=== PATIENT | male | born 1985 ===

== ENCOUNTER 2016-09-04 16:23 | Day surgery (SDC) | payer OTHER ==
[2016-09-04] MEDS ORDERED: MIDAZOLAM HCL 2 MG/2 ML SYR IV PRN ×2 (16:40→18:17)
[2016-09-04] MEDS ORDERED: ceFAZolin 1 GM in NORMAL SALINE MINI-BAG+ 100 ML IV PRN ×2 (16:40→18:17)
[2016-09-04] MEDS ORDERED: LIDOCAINE HCL 1% 20 ML VIAL SUBCUT PRN ×2 (16:40→18:17)
[2016-09-04] MEDS ORDERED: FAMOTIDINE IN SALINE, ISO-OSM 20 MG/50 ML PIGGYBACK IV SCH ×2 (16:45→18:17)
[2016-09-04] MEDS ORDERED: ACETAMINOPHEN 1,000 MG/100 ML VIAL IV SCH ×2 (16:45→18:17)
[2016-09-04] MEDS ORDERED: NORFLURANE/HFC 245FA 1 APPLIC CAN TOPICAL ONE (16:48)
[2016-09-04] MEDS ORDERED: FENTANYL 100 MCG/2 ML VIAL ONE ×2 (16:52→16:53)
[2016-09-04] MEDS ORDERED: ROCURONIUM BROMIDE 50 MG/5 ML VIAL IV ONE (16:52)
[2016-09-04] MEDS ORDERED: SUCCINYLCHOLINE CHLORIDE 200 MG/10 ML VIAL ONE (16:52)
[2016-09-04] MEDS ORDERED: ONDANSETRON HCL 4 MG/2 ML VIAL ONE (16:54)
[2016-09-04] MEDS ORDERED: DEXAMETHASONE 4 MG/ML VIAL ONE (16:54)
[2016-09-04] MEDS ORDERED: ceFAZolin 1 GM/10 ML VIAL ONE (16:57)
[2016-09-04] MEDS ORDERED: MIDAZOLAM HCL 2 MG/2 ML VIAL ONE (16:58)
[2016-09-04] MEDS ORDERED: LACTATED RINGERS 1,000 ML IV SCH ×3 (17:00→18:17)
[2016-09-04] MEDS ORDERED: BUPIVACAINE HCL/PF 0.5% 30 ML VIAL ONE (17:12)
[2016-09-04] MEDS ORDERED: BACITRACIN 50,000 UNITS VIAL IM ONE ×2 (17:15→18:05)
[2016-09-04] MEDS ORDERED: NORMAL SALINE FLUSH 10 ML ONE (18:05)
[2016-09-04] MEDS ORDERED: BACITRACIN 14 APP/14 GM TUBE TOPICAL ONE (18:05)
[2016-09-04] MEDS ORDERED: MORPHINE SULFATE 10 MG/ML SYR IV PRN (18:17)
[2016-09-04] MEDS ORDERED: ONDANSETRON HCL 4 MG/2 ML VIAL IV PRN (18:17)
[2016-09-04] MEDS ORDERED: FENTANYL 100 MCG/2 ML VIAL IV PRN (18:17)
[2016-09-04 19:35] VITALS: TEMP 97
[2016-09-04 20:02] VITALS: RESP 16
[2016-09-04] MEDS ORDERED: ALBUTEROL 0.083% 2.5 MG/3 ML VIAL.NEB INHALATION ONE (20:07)
[2016-09-04 20:53] VITALS: BP 134/83; PULSE 96; O2SAT 94
--- NOTE | 2016-09-05 07:54 | OPERATIVE REPORT ---
Preoperative diagnosis: Right great toe displaced proximal phalanx open fracture Postoperative diagnosis: Same Procedure: Right great toe proximal phalanx open reduction internal fixation with irrigation and debridement Surgeon: Dr. Jon Berman Anesthesia: General Estimated blood loss: Minimal Total tourniquet time: 90 minutes Procedure note: The patient was brought to the OR suite and after administration of general anesthesia the right lower extremity was prepped and draped in a sterile fashion after applying a well-padded tourniquet to the right proximal thigh. An Esmarch bandage was utilized to exsanguinate followed by insufflation of the tourniquet. The laceration over the dorsum of the great toe was irrigated and debrided of devascularized tissue. The extensor tendon was noted which appeared to be intact. The open fracture was irrigated with bacitracin infused normal saline 1 L. An incision was made over the dorsal and medial aspect of the great toe. Dissection was carried down bluntly avoiding all neurovascular structures. The medial joint capsule was incised and the fracture fragment was stripped of periosteum immediately around the fracture site for visualization and reduction purposes. The fracture was reduced but it was noted on the oblique that it was still in an extended position therefore a dental pick was utilized for reduction coupled with a freer elevator utilizing a Kapunji technique. Fluoroscopic intensification was utilized for fracture reduction and placement of K wires. 2 K wires which were crossing were inserted near perpendicular across the fracture site. Noting some diastases on the fluoroscopic intensification a sharp bone reduction clamp was utilized to compress the fracture followed by removal of the K wires which did produce good compression at the fracture site as noted on the fluoroscopic image. Two 2.7 fully threaded screws were then inserted after first drilling perpendicular to the fracture site in a divergent trajectory both slightly dorsal and plantar each. The fracture site and laceration were then again copiously irrigated with bacitracin infused normal saline. The capsule to the joint was repaired with 4.0 FiberWire. The incision and laceration were closed utilizing 2-0 nylon. The patient did have an injection of half percent plain bupivacaine at the beginning and the end of the surgery. Some of the bupivacaine did come out through the open laceration, but a total of 20 mL total was injected. A plaster splint was applied after first applying bacitracin ointment, Xeroform, 4 x 4s, 4 x 4 fluffs and cast padding. The patient was transferred from the OR suite to the recovery room. SOPHIA
--- NOTE | 2016-09-07 06:37 | RADIOLOGY REPORT ---
Five views of the right great toe from the C-Arm in the operating room are compared with films earlier on the same date. There has been interval open reduction and internal fixation of the proximal phalanx fracture, which is secured with two screws. No other change is identified. IMPRESSION: Interval open reduction and internal fixation of the proximal phalanx fracture of the right great toe. SOPHIA
--- NOTE | 2016-09-08 13:42 | PREOPERATIVE H&P ---
History of Present Illness (Jon Smithmony ROBLES; 09/04/2016 3:25 PM) The patient is a 30 year old male. The patient was working today at [employer] when a fully loaded trailer had the town of the trailer fall off the block onto the patient's toe. He was wearing shoes. He had immediate pain and noticed bleeding. He was seen by a nurse practitioner here in town and was sent over to the hospital where he is now being seen in my clinic. He is ambulating on his heel. He is accompanied by his . Problem List/Past Medical (Claudia Ron, RN; 09/04/2016 3:24 PM) Asthma (493.92) Allergies (Claudia Ron RN; 09/04/2016 3:24 PM) No Known Drug [id number]/2017 Social History (Claudia Ron, YOAN; 09/04/2016 3:24 PM) Alcohol Use Drinks Socially. Tobacco Use Never smoker. Review of Systems (Jon Smithmony ROBLES; 09/04/2016 3:19 PM) General Not Present- Chills and Fever. Skin Not Present- Erythema, Skin Color Changes and Skin Problems. HEENT Not Present- Sleep Apnea. Neck Not Present- Neck Pain. Respiratory Not Present- Cough and Shortness of Breath. Cardiovascular Not Present- Chest Pain, Difficulty Breathing On Exertion, Fainting and Leg Pain and/or Swelling. Gastrointestinal Not Present- Abdominal Pain, Nausea and Vomiting. Male Genitourinary Not Present- Painful Urination and Urethral Discharge. Musculoskeletal Not Present- Decreased Range of Motion, Joint Pain, Joint Stiffness, Joint Swelling, Muscle Pain and Muscle Weakness. Neurological Not Present- Dizziness, Focal Neurological Symptoms, Numbness in extremities, Trouble walking and Weakness. Psychiatric Not Present- Anorexia, Anxiety and Depression. Endocrine Not Present- Weight Loss. Hematology Not Present- Bleeding Problems, DVT and Easy Bruising. Vitals (Jon Smithence ; 09/04/2016 3:29 PM) 09/04/2016 3:27 PM Weight: 190 lb Height: 66in Body Surface Area: 1.96 m Body Mass Index: 30.67 kg/m Temp.: 98.3F Pulse: 64 (Regular) Resp.: 16 (Unlabored) BP: 130/84 (Sitting, Left Arm, Standard) Physical Exam (Jon Smithmony ROBLES; 09/04/2016 3:26 PM) The physical exam findings are as follows: Note:Physical examination of the right great toe demonstrates a laceration dorsal aspect. There is bleeding and drainage. The laceration 2 cm in length. There is normal sensation in the toe. Normal sensation and adequate perfusion. Plain film x-rays read by myself demonstrate a displaced fracture at the distal aspect of the proximal phalanx involving the articular surface. There is no other signs of trauma to the foot. General Mental Status-Alert. General Appearance-Well Appearing and Not in acute distress. Assessment & Plan (Jon Berman DO; 09/04/2016 3:35 PM) Open displaced fracture of proximal phalanx of right great toe, initial encounter (S92.411B) Impression: The patient will go to the operating room immediately for irrigation and debridement with open reduction internal fixation. After educating the patient regarding treatment options with their associated risks and benefits, the patient elected to proceed with surgical treatment of the injury/pathology with RIGHT GREAT TOE OPEN FRACTURE IRRIGATION AND DEBRIDMENT WITH OPEN REDUCITON INTERNANL FIXATION. The risks and benefits of the specific procedure were explained and all questions and concerns were addressed and answered. Post operative rehabilitation requirements and expectations for optimal outcome were reviewed and the patient confirmed understanding these and committed to compliance. All questions answered. Current Plans IRRIGATION AND DEBRIDEMENT, WOUND (67923) OPEN REDUCTION AND INTERNAL FIXATION (ORIF) OF RIGHT GREAT TOE (24419) Started Hydrocodone-Acetaminophen 5-325MG, 1 (one) Tablet every four-six hours, #32, 09/04/2016, No Refill. Local Order: PRN Pain. Started Keflex 500MG, 1 (one) Capsule four times daily, #20, 5 days starting , No Refill. Signed by Jon Berman DO (09/04/2016 7:23 PM) SOPHIA
== END 2016-09-04 21:00 | disposition home or self-care (01) ==
LOC: SDS 16:23
PROVIDERS: ATTEND Orthopaedic Surgery
DX: S92.411B Displaced fracture of proximal phalanx of right great toe, initial encounter for open fracture (principal); W23.0XXA Caught, crushed, jammed, or pinched between moving objects, initial encounter
CPT/HCPCS: 76001; C1713; J0690; J2250; J2405; J3010; J7613